=== PATIENT | female | born 1965 | race Two or more races ===

== ENCOUNTER 2024-08-19 07:42 | Outpatient (CLI) | payer OTHER | END 2024-08-19 07:47 | disposition home or self-care (01) | LOC: SONOGRAMA 07:42 | DX: R74.8 Abnormal levels of other serum enzymes (principal); C50.412 Malignant neoplasm of upper-outer quadrant of left female breast ==

== ENCOUNTER → 2024-12-07 07:14 | Outpatient (CLI) | payer OTHER ==
[2024-12-07 08:24] LABS: HEMATOCRIT 37.7 % (36.0-45.00); HEMOGLOBIN 12.7 g/dL (12.0-15.00); MEAN CORPUSCULAR HEMOGLOBIN 31.8 pg (27.00-32.0); MEAN CORPUSCULAR HGB CONC 33.8 g/dl (32.0-36.0); RED BLOOD COUNT 4.01 M/uL (4.00-6.00); RED CELL DISTRIBUTION WIDTH 22.8 % (11.5-14.5)
[2024-12-07 08:27] LABS: PLATELET COUNT 127 K/uL (150-450)
[2024-12-07 09:14] LABS: ALBUMIN 3.4 gm/dL (3.4-5.0); BILIRUBIN TOTAL 0.38 mg/dL (0.3-1.2); CHOL HDL RATIO 3.4 (0-5.0); CREATININE SERUM 0.76 mg/dL (0.55-1.02); GFR 78.16; GLOBULINA 3.6 G/DL (2.4-3.5); POTASSIUM 3.59 mEq/L (3.5-5.1); TSH 3.05 uIU/mL (0.358-3.74)
[2024-12-08 11:11] LABS: CA 27.29 30.9 U/mL (0.0-38.6)
== END | disposition home or self-care (01) ==
LOC: LAB 07:14
PROVIDERS: ATTEND Student in an Organized Health Care Education/Training Program
DX: E11.65 Type 2 diabetes mellitus with hyperglycemia (principal); E78.2 Mixed hyperlipidemia; I10 Essential (primary) hypertension; C73 Malignant neoplasm of thyroid gland; D50.8 Other iron deficiency anemias; C50.412 Malignant neoplasm of upper-outer quadrant of left female breast

== ENCOUNTER → 2025-06-16 11:23 | Outpatient (CLI) | payer OTHER ==
[2025-06-16 13:12] LABS: BASO % 0.9 % (0.1-1.2); EOS # 0.60 (0.04-0.54); EOS % 8.9 % (0.7-7.0); LYMPH # 1.53 (1.18-3.74); LYMPH % 22.6 % (19.3-53.1); MEAN PLATELET VOLUME 9.70 fl (9.4-12.4); MONO # 0.54 (0.24-0.82); MONO % 8.0 % (4.7-12.5); NEUT # 4.02 (1.56-6.13); NEUT % 59.3 % (34.0-71.1); RED CELL DISTRIBUTION WIDTH 14.1 % (11.6-14.4)
[2025-06-16 13:26] LABS: ALT/SGPT 24.0 U/L (12-78); AST/SGOT 42.0 U/L (15-37); BILIRUBIN TOTAL 0.7 mg/dL (0.3-1.2); BUN CREA RATIO 19.0 (7.0-25.0); CREATININE SERUM 0.64 mg/dL (0.55-1.02); GFR 94.98; GLOBULINA 3.7 G/DL (2.4-3.5); GLUCOSE FASTING 161.0 mg/dL (65-100); LDH 156.0 U/L (84-246); OSMOLALITY SERUM 286.0 MOSM/KG (275-295)
== END | disposition home or self-care (01) ==
LOC: LAB 11:23
PROVIDERS: ATTEND Student in an Organized Health Care Education/Training Program
DX: E11.65 Type 2 diabetes mellitus with hyperglycemia (principal); C50.412 Malignant neoplasm of upper-outer quadrant of left female breast